=== PATIENT | male | born 1945 | race Caucasian/White ===

== ENCOUNTER 2018-06-09 18:14 | Emergency (ER) | payer MEDICARE, OTHER ==
[2018-06-09 19:20] VITALS: BP 185/52
[2018-06-09] MEDS ORDERED: Ipratropium 0.5MG/2.5ML NEB* 0.5 MG/2.5 ML NEB.SOLN INH ONE (19:27)
[2018-06-09] MEDS ORDERED: Albuterol 2.5 MG/3 ML NEB.SOL* (0.083%) INH ONE (19:27)
--- NOTE | 2018-06-09 19:28 | UC ---
Respiratory Complaint HPI - HPI Summary HPI Summary: The patient is a 73-year-old male with a two-week history of progressively worsening wheezing, nasal congestion cough. He has been febrile. Denies any chest pain. He has had some mild dyspnea. - History of Current Complaint Chief Complaint: UCRespiratory Stated Complaint: COUGH,CONGESTION,SORE THROAT,HEADACHE Time Seen by Provider: 06/09/18 19:14 Hx Obtained From: Patient Onset/Duration: Gradual Onset, Lasting Weeks Timing: Constant Severity Initially: Mild Severity Currently: Moderate Pain Intensity: 4 Pain Scale Used: 0-10 Numeric Character: Cough: Nonproductive Aggravating Factors: Exertion, Deep Breaths Associated Signs And Symptoms: Positive: Fever, Chills, Wheezing, Nasal Congestion - Allergies/Home Medications Allergies/Adverse Reactions: Allergies Allergy/AdvReac Type Severity Reaction Status Date / Time No Known Allergies Allergy Verified 06/09/18 19:05 Home Medications: Home Medications Ferrous Sulfate [Iron] 500 mg PO TID 06/09/18 [History Confirmed 06/09/18] Gabapentin CAP(*) [Neurontin 100 mg CAP(*)] 0 mg PO BID 06/09/18 [History Confirmed 06/09/18] PMH/Surg Hx/FS Hx/Imm Hx Previously Healthy: Yes Endocrine History: Diabetes Cardiovascular History: Cardiac Disease, Hypertension, Pacemaker/ICD, Atrial Fibrillation Respiratory History: COPD, Bronchitis - Surgical History Surgical History: Yes Surgery Procedure, Year, and Place: pyelonidal cyst, Left great toe, 2nd toes amputated; right leg vascular surgery with bypass to improve circulation tp foot - Family History Known Family History: Positive: Hypertension, Diabetes - Social History Alcohol Use: None Substance Use Type: None Smoking Status (MU): Heavy Every Day Tobacco Smoker Type: Cigarettes Amount Used/How Often: 1/2 ppd Length of Time of Smoking/Using Tobacco: since age 14 Have You Smoked in the Last Year: Yes - Immunization History Most Recent Tetanus Shot: pt states [facility] Review of Systems All Other Systems Reviewed And Are Negative: Yes Constitutional: Positive: Fever, Chills Skin: Positive: Negative Eyes: Positive: Negative ENT: Positive: Nasal Discharge, Sinus Congestion Respiratory: Positive: Cough Cardiovascular: Positive: Negative Gastrointestinal: Positive: Negative Genitourinary: Positive: Negative Motor: Positive: Negative Neurovascular: Positive: Negative Musculoskeletal: Positive: Negative Neurological: Positive: Negative Psychological: Positive: Negative Physical Exam Triage Information Reviewed: Yes Appearance: Well-Appearing, No Pain Distress, Well-Nourished Vital Signs: Initial Vital Signs Temp 100.6 F 06/09/18 19:14 Pulse 64 06/09/18 19:14 Resp 28 06/09/18 19:14 BP 185/52 06/09/18 19:14 Pulse Ox 97 06/09/18 19:14 Vital Signs Reviewed: Yes Eyes: Positive: Conjunctiva Clear ENT: Positive: Nasal congestion, Sinus tenderness. Negative: Hearing grossly normal, Nasal drainage, Tonsillar swelling, Tonsillar exudate Neck: Positive: Supple Respiratory: Positive: No respiratory distress, No accessory muscle use, Wheezing Cardiovascular: Positive: RRR. Negative: Tachycardia, Bradycardia Musculoskeletal: Positive: ROM Intact, No Edema Neurological: Positive: Alert Psychological Exam: Normal UC Diagnostic Evaluation - Laboratory O2 Sat by Pulse Oximetry: 97 - normal . not hypoxic - Radiology Radiology Interpretation Completed By: ED Physician Summary of Radiographic Findings: stigmata of COPD, pacer, no infiltrate Respiratory Course/Dx - Course Course Of Treatment: patient anxious to leave. declines further treatment or evaluation. he says he needs to get home and plow snow - Differential Dx/Diagnosis Provider Diagnosis: Acute bronchitis with bronchospasm Discharge - Sign-Out/Discharge Documenting (check all that apply): Patient Departure All imaging exams completed and their final reports reviewed: No - Discharge Plan Condition: Stable Disposition: HOME Prescriptions: Amoxicillin PO (*) [Amoxicillin 875 MG (*)] 875 mg PO BID #14 tab Patient Education Materials: Acute Bronchitis (ED) Referrals: Bridgett Crow [Primary Care Provider] - 3 Days Additional Instructions: TO ER FOR NEW OR WORSENING SYMPTOMS rest fluids tylenol - Billing Disposition and Condition Condition: STABLE Disposition: Home
[2018-06-09] MEDS ORDERED: Amoxicillin PO (*) 500 MG CAP PO ONE (19:54)
[2018-06-09] MEDS ORDERED: Amoxicillin PO (*) 250 MG CAP PO ONE (19:54)
[2018-06-09] MEDS ORDERED: Acetaminophen TAB* 325 MG PO ONE (19:54)
--- NOTE | 2018-06-11 06:56 | UC ---
- EKG/XRAY/CT Xray Comments: wet read correct Course/Dx - Diagnoses Provider Diagnoses: Acute bronchitis with bronchospasm Discharge - Sign-Out/Discharge Documenting (check all that apply): Post-Discharge Follow Up All imaging exams completed and their final reports reviewed: Yes - Discharge Plan Condition: Stable Disposition: HOME Prescriptions: Amoxicillin PO (*) [Amoxicillin 875 MG (*)] 875 mg PO BID #14 tab Patient Education Materials: Acute Bronchitis (ED) Referrals: Bridgett Crow [Primary Care Provider] - 3 Days Additional Instructions: TO ER FOR NEW OR WORSENING SYMPTOMS rest fluids tylenol - Billing Disposition and Condition Condition: STABLE Disposition: Home
== END 2018-06-09 20:14 | disposition home or self-care (01) ==
LOC: UCCORT 18:14
DX: J44.0 Chronic obstructive pulmonary disease with (acute) lower respiratory infection (principal); J20.9 Acute bronchitis, unspecified; R09.81 Nasal congestion; E11.9 Type 2 diabetes mellitus without complications; I10 Essential (primary) hypertension; F17.210 Nicotine dependence, cigarettes, uncomplicated
CPT/HCPCS: 71046; 99213; A9270-GY; G0463